=== PATIENT | female | born 2000 | race African-American/Black ===

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

== ENCOUNTER 2021-02-25 08:10 | Emergency (ER) | payer OTHER ==
[2021-02-25 08:44] VITALS: BP 110/72; PULSE 140; BMI 28.9
[2021-02-25] MEDS ORDERED: IBUPROFEN 600 MG TABLET (FP) PO ONE ×2 (09:01→09:15)
[2021-02-25 09:27] VITALS: TEMP 101.1
[2021-02-26 11:08] LABS: SARS-CoV-2 NAA Detected (Not Detected)
== END 2021-02-25 09:27 | disposition home or self-care (01) ==
LOC: JER 08:10
DX: U07.1 COVID-19 (principal)
CPT/HCPCS: 87070; 87804; 99283-25; C9803-CS; U0003; U0005

== ENCOUNTER 2021-12-16 02:38 | Emergency (ER) | payer OTHER ==
[2021-12-16 02:47] VITALS: BP 119/82; PULSE 87; RESP 18; TEMP 97.9; BMI 31.2
[2021-12-16] MEDS ORDERED: CLINDAMYCIN HCL 150 MG CAPSULE (FP) PO ONE (03:07)
[2021-12-16] MEDS ORDERED: IBUPROFEN 600 MG TABLET (FP) PO ONE ×2 (03:08→03:10)
[2021-12-16] MEDS ORDERED: CLINDAMYCIN HCL 150 MG CAPSULE (FP) ONE (03:11)
== END 2021-12-16 03:16 | disposition home or self-care (01) ==
LOC: JER 02:38 → JERFT 02:38
DX: K08.89 Other specified disorders of teeth and supporting structures (principal)
CPT/HCPCS: 99283-25

== ENCOUNTER 2022-05-06 16:43 | Emergency (ER) | payer OTHER ==
[2022-05-06] MEDS ORDERED: IBUPROFEN 600 MG TABLET (FP) PO ONE ×2 (16:53→17:02)
[2022-05-06 17:02] VITALS: BP 112/75; PULSE 91; RESP 17; TEMP 98.2; BMI 33.5
== END 2022-05-06 17:37 | disposition home or self-care (01) ==
LOC: FER 16:43
DX: S50.01XA Contusion of right elbow, initial encounter (principal); V03.10XA Pedestrian on foot injured in collision with car, pick-up truck or van in traffic accident, initial encounter; Y93.01 Activity, walking, marching and hiking; Y92.410 Unspecified street and highway as the place of occurrence of the external cause
CPT/HCPCS: 73070-TC-RT-FY; 99283-25

== ENCOUNTER 2022-06-07 19:51 | Emergency (ER) | payer OTHER ==
[2022-06-07 20:02] VITALS: BP 122/72; RESP 18; BMI 32.9
[2022-06-07 23:04] VITALS: PULSE 105; TEMP 99.8
== END 2022-06-07 23:09 | disposition home or self-care (01) ==
LOC: JERFT 19:51
DX: J06.9 Acute upper respiratory infection, unspecified (principal); B97.89 Other viral agents as the cause of diseases classified elsewhere; R05.1 Acute cough; M79.10 Myalgia, unspecified site; R50.9 Fever, unspecified; R07.0 Pain in throat; Z20.822 Contact with and (suspected) exposure to COVID-19
CPT/HCPCS: 0241U-QW; 99283-25

== ENCOUNTER 2022-08-02 12:20 | Emergency (ER) | payer OTHER ==
[2022-08-02 12:27] VITALS: BP 124/79; PULSE 98; RESP 18; TEMP 97.8; BMI 32.9
[2022-08-02] MEDS ORDERED: LIDOCAINE HCL 1%, 10 MG/ML (50 mL VIAL) SQ ONE (12:37)
[2022-08-02] MEDS ORDERED: LIDO 2%/EPI 1:200000 PRESRVFRE (20 ML SDVIAL) ONE (12:38)
[2022-08-02] MEDS ORDERED: LIDOCAINE HCL/EPINEPHRINE/PF 20 ML VIAL IM ONE (13:01)
== END 2022-08-02 13:05 | disposition home or self-care (01) ==
LOC: FER 12:20
PROC: 3E023GC Introduction of Other Therapeutic Substance into Muscle, Percutaneous Approach (ICD-10-PCS; principal; 2022-08-02)
DX: L05.91 Pilonidal cyst without abscess (principal)
CPT/HCPCS: 99284-25

== ENCOUNTER 2023-04-23 14:38 | Emergency (ER) | payer OTHER ==
[2023-04-23] MEDS: IBUPROFEN 600 MG TABLET (FP) PO ONE (14:53)
[2023-04-23] MEDS ORDERED: ACETAMINOPHEN 325 MG TABLET (FP) ONE (14:54)
[2023-04-23 14:57] VITALS: BP 122/83; RESP 18; BMI 33.8
[2023-04-23] MEDS: ACETAMINOPHEN 325 MG TABLET (FP) PO ONE (15:04)
[2023-04-23 16:18] VITALS: PULSE 97; TEMP 98.8
== END 2023-04-23 16:40 | disposition home or self-care (01) ==
LOC: FER 14:38
DX: R05.9 Cough, unspecified (principal); M79.10 Myalgia, unspecified site; J06.9 Acute upper respiratory infection, unspecified; J45.21 Mild intermittent asthma with (acute) exacerbation; J02.9 Acute pharyngitis, unspecified; Z20.822 Contact with and (suspected) exposure to COVID-19
CPT/HCPCS: 0241U-QW; 71046-TC-FY; 87651; 99284-25

== ENCOUNTER 2024-05-02 05:20 | Day surgery (SDC) | payer OTHER ==
[2024-04-30 12:38] VITALS: BMI 34.7
[2024-05-02] MEDS ORDERED: BUPIVACAINE HCL/PF 0.5% (5MG/ML) 10 ML VIAL ONE ×2 (07:38→11:51)
[2024-05-02] MEDS ORDERED: LIDOCAINE HCL 1%, 10 MG/ML (20ML VIAL) ONE (07:38)
[2024-05-02] MEDS ORDERED: BUPIVACAINE HCL/PF 0.25% (2.5MG/ML) 10 ML VIAL ONE ×2 (07:38→09:09)
[2024-05-02] MEDS ORDERED: MIDAZOLAM HCL 2 MG/2 ML SINGLE DOSE VIAL ONE ×4 (11:54→13:03)
[2024-05-02] MEDS ORDERED: ceFAZolin SODIUM 1 GM VIAL ONE (12:24)
[2024-05-02] MEDS: ceFAZolin SODIUM 1 GM VIAL IVPB ONE ×2 (12:27)
[2024-05-02] MEDS: BUPIVACAINE HCL/PF 0.25% (2.5MG/ML) 10 ML VIAL IJ ONE ×2 (12:34)
[2024-05-02 17:18] VITALS: RESP 18
[2024-05-02] MEDS ORDERED: ACETAMINOPHEN 500 MG TABLET (FP) ONE (17:41)
[2024-05-02 18:44] VITALS: BP 125/75; PULSE 63; TEMP 98
== END 2024-05-02 19:00 | disposition home or self-care (01) ==
LOC: JASU-SURG 05:20
PROVIDERS: ATTEND Surgery
PROC: 0JB93ZZ Excision of Buttock Subcutaneous Tissue and Fascia, Percutaneous Approach (ICD-10-PCS; principal; 2024-05-02 10:30)
DX: L05.91 Pilonidal cyst without abscess (principal)
CPT/HCPCS: 81025; 88304-TC; 94760